=== PATIENT | male | born 1990 | race Caucasian/White ===

== ENCOUNTER 2016-10-30 23:17 | Emergency (ER) | payer MEDICAID ==
[~2016-10-30] VITALS: Ht 188 cm; Wt 91.0 kg
[2016-10-30] MEDS ORDERED: SODIUM CHLORIDE 0.9% 1,000 ML IV ONE (23:42)
[2016-10-30] MEDS ORDERED: ONDANSETRON HCL 4MG/2ML VIAL IV STA (23:42)
[2016-10-30] MEDS ORDERED: MORPHINE SULFATE 4 MG/ML CPJ (NOT FOR IM USE) IV STA (23:42)
[2016-10-31 02:33] VITALS: BP 128/79
== END 2016-10-31 03:21 | disposition home or self-care (01) ==
LOC: ER 23:25
DX: S42.002A Fracture of unspecified part of left clavicle, initial encounter for closed fracture (principal); F15.10 Other stimulant abuse, uncomplicated; V29.88XA Motorcycle rider (driver) (passenger) injured in other specified transport accidents, initial encounter; Y93.55 Activity, bike riding; Y92.89 Other specified places as the place of occurrence of the external cause; Y99.8 Other external cause status
CPT/HCPCS: 29105; 73000; 73030; 73060; 73070; 96361; 96374; 96375; 99284; J2270; J2405; J7030; Z7610; L3670